=== PATIENT | male | born 1995 | race African-American/Black ===

== ENCOUNTER 2021-06-29 07:31 | Day surgery (SDC) | payer OTHER ==
[~2021-06-29] VITALS: Ht 175.3 cm; Wt 79.0 kg
[2021-06-29] VITALS (11 sets, daily range): BP systolic 100–143; BP diastolic 57–84
[2021-06-29 08:50] LABS: HEMATOCRIT 42.1 % (39.0-50.0); HEMOGLOBIN 13.8 g/dl (14.0-18.0); IMMATURE GRANULOCYTES 0.2 % (0.0-5.0); MEAN CELL VOLUME 81.1 fL CALC (80.0-100.0); MEAN CORPUSCULAR HGB 26.6 pG CALC (26.0-32.0); MEAN CORPUSCULAR HGB CONC 32.8 g/dL CAL (32.0-36.0); NEUT# 3.01 thou/uL (1.82-7.42); RED BLOOD COUNT 5.19 mill/uL (4.70-6.10); RED CELL DISTRI WIDTH 12.4 % (11.5-15.5)
[2021-06-29 09:14] LABS: ALBUMIN 4.5 g/dL (3.2-5.0); ALKALINE PHOSPHATASE 71 u/l (38-126); ANION GAP 11 (6-22 (CALC)); BILIRUBIN, TOTAL 0.6 mg/dL (0.0-1.4); BUN 11 mg/dL (9-20); BUN/CREATININE RATIO 9 (12-20 (CALC)); CARBON DIOXIDE 29 mmol/l (22-30); CHLORIDE 103 mmol/l (95-108); CREATININE 1.2 mg/dL (0.7-1.3); GFR > 60 ML/MIN (>=60 (CALC)); GFR FOR AFR.AMER. > 60 ML/MIN (>=60 (CALC)); SGOT/AST 35 u/l (17-59); SODIUM 139 mmol/l (137-146); TOTAL PROTEIN 7.6 g/dL (6.3-8.2)
[2021-06-29] MEDS ORDERED: CLONIDINE0.1 MG PO (14:48)
[2021-06-29] MEDS ORDERED: NALTREXONE50 MG PO (14:49)
[2021-06-29] MEDS ORDERED: KLONOPIN0.5 MG PO (14:50)
[2021-06-30 04:00] VITALS: BP 137/76
[2021-06-30 05:27] LABS: ALBUMIN 4.2 g/dL (3.2-5.0); ALKALINE PHOSPHATASE 72 u/l (38-126); ANION GAP 12 (6-22 (CALC)); BILIRUBIN, TOTAL 0.5 mg/dL (0.0-1.4); BUN 9 mg/dL (9-20); BUN/CREATININE RATIO 9 (12-20 (CALC)); CARBON DIOXIDE 27 mmol/l (22-30); CHLORIDE 106 mmol/l (95-108); GFR > 60 ML/MIN (>=60 (CALC)); GFR FOR AFR.AMER. > 60 ML/MIN (>=60 (CALC)); POTASSIUM 4.5 mmol/l (3.5-5.1); SGOT/AST 30 u/l (17-59); SODIUM 140 mmol/l (137-146); TOTAL PROTEIN 7.2 g/dL (6.3-8.2)
[2021-06-30 07:27] VITALS: BP 137/80
[2021-06-30 13:18] VITALS: BP 105/65
[2021-06-30 14:55] VITALS: BP 127/74
== END 2021-06-30 16:50 | disposition home or self-care (01) | DRG 897 ==
LOC: ANR 07:31 → MS2 07:35 → ANR 08:02
PROVIDERS: ATTEND Anesthesiology
DX: F11.20 Opioid dependence, uncomplicated (principal)
CPT/HCPCS: J2060; J2354